=== PATIENT | female | born 1960 | race Caucasian/White ===

== ENCOUNTER → 2016-07-17 | Outpatient (CLI) | payer OTHER ==
[~2016-07-17] MED LIST: AMLO5TAB2 PO; ATOR10TA PO; DEXA2TAB PO; DOCU-30 PO; DULO60CA7 PO; FAMO-79 PO; HYDR-3138 PO; LEVE500T53 PO; LEVO75TA5 PO; LISI-167 PO; LORA10TA72 PO
== END | disposition home or self-care (01) ==
LOC: ROC 09:24
PROVIDERS: ATTEND Radiology Radiation Oncology
DX: Z51.0 Encounter for antineoplastic radiation therapy (principal); C71.3 Malignant neoplasm of parietal lobe
CPT/HCPCS: 99213; G0463